=== PATIENT | female | born 1970 | race African-American/Black ===

== ENCOUNTER 2016-10-02 22:49 | Inpatient (IN) | payer OTHER ==
[2016-10-02 23:12] VITALS: BMI 36.9
--- NOTE | 2016-10-03 01:43 | PDOC ---
History of Present Illness <Tracey Sanchez - Last Filed: 10/03/16 05:59> - General History Source: Patient Exam Limitations: No Limitations - History of Present Illness Travel History: No Initial Comments: 10/03/16 01:38 46 yo Female patient presents to ED c/o fluid leaking out of vagina s/p hysterectomy 09/19. Patient states she went to see her surgeon Dr. Mcdaniel who ordered a cystogram for tomorrow, but patient concerned because lots of "fluids " leaking from vaginal. She reports changing pad every 1 hour. Denies fever, CP , back pain, n/v/d, diff breathing, vaginal bleeding, dysuria, hematuria, rectal bleeding, or any other complaints at this time. Timing/Duration: reports: getting worse Quality: reports: moderate Abdominal Pain Onset Location: denies: RUQ, LUQ, RLQ, LLQ, epigastric, periumbilical, suprapubic, generalized abdomen, flank, unknown, other Pain Radiation: denies: no radiation, RUQ, LUQ, RLQ, LLQ, epigastric, periumbilical, flank, groin, scapula, shoulder, chest, back, other Activities at Onset: reports: exertion Treatment Prior to Arrive: worse with: analgesics, antacids, cold pack, heat, laxative, enema, other Aggravating Factors: improves with: Change in position Alleviating Factors: improves with: None <Jody Jackson - Last Filed: 10/08/16 00:35> - General Chief Complaint: Pain, Acute Stated Complaint: STOMACH PAIN Time Seen by Provider: 10/02/16 23:33 Past History <Tracey Sanchez - Last Filed: 10/03/16 05:59> - Travel Traveled outside of the country in the last 30 days: No Close contact w/someone who was outside of country & ill: No - Past Medical History Anemia: No Asthma: Yes Cancer: No Cardiac Disorders: Yes ("hole in heart repaired 2004) CVA: Yes (no residual, pre hole in heart) COPD: No CHF: No Dementia: No Diabetes: No GI Disorders: No Disorders: No HTN: No Hypercholesterolemia: No Liver Disease: No Seizures: No Thyroid Disease: No - Surgical History Abdominal Surgery: No Appendectomy: No Cardiac Surgery: No Cholecystectomy: No Lung Surgery: No Neurologic Surgery: No Orthopedic Surgery: No - Psycho/Social/Smoking Cessation Hx Suicidal Ideation: No Smoking History: Never smoked Have you smoked in the past 12 months: No If you are a former smoker, when did you quit?: 2003 Hx Alcohol Use: No Drug/Substance Use Hx: No Substance Use Type: Alcohol Hx Substance Use Treatment: No <Jody Jackson - Last Filed: 10/08/16 00:35> - Past Medical History Allergies/Adverse Reactions: Allergies Allergy/AdvReac Type Severity Reaction Status Date / Time amoxicillin Allergy Severe Verified 10/02/16 22:58 Home Medications: Ambulatory Orders Potassium Chloride [Klor-Con 10] 10 meq PO DAILY 02/08/15 Furosemide [Lasix -] 40 mg PO DAILY 02/24/15 Cephalexin Monohydrate [Keflex -] 500 mg PO BID #28 capsule MDD 2 10/05/16 Hydromorphone HCl 2 mg PO Q4H PRN #30 tablet MDD 12 10/05/16 Abd/GI Specific PMHX - Complaint Specific PMHX Colitis: No Diverticulitis: No Gall Bladder Disease: No GERD: No Hepatitis: No Irritable Bowel Synd (IBS): No Pancreatitis: No GI Ulcer Disease: No <Jody Jackson - Last Filed: 10/08/16 00:35> Review of Systems - Review of Systems Able to Perform ROS?: Yes Is the patient limited [place] proficient: No Constitutional: No: Chills, Fever Respiratory: No: Cough, Orthopnea, Shortness of Breath, SOB with Exertion, Hemoptysis Cardiac (ROS): No: Chest Pain, Edema, Lightheadedness, Palpitations ABD/GI: Yes: Abdominal Distended. No: Abd. Pain w/ defecation, Constipated, Diarrhea, Nausea, Poor Appetite, Rectal Bleeding, Vomiting, Tarry Stools : No: Burning, Dysuria, Discharge, Hematuria Musculoskeletal: No: Back Pain Integumentary: No: Erythema, Rash Neurological: No: Headache, Numbness, Paresthesia, Tingling, Tremors, Weakness Psychiatric: No: Change in Appetite All Other Systems: Reviewed and Negative <Jody Jackson - Last Filed: 10/08/16 00:35> *Physical Exam - Vital Signs Last Vital Signs Temp Pulse Resp BP Pulse Ox 98.5 F 93 H 18 138/85 98 10/02/16 22:59 10/02/16 22:59 10/02/16 22:59 10/02/16 22:59 10/02/16 22:59 <Tracey Sanchez - Last Filed: 10/03/16 05:59> - Vital Signs Last Vital Signs Temp Pulse Resp BP Pulse Ox 98.5 F 93 H 18 138/85 98 10/02/16 22:59 10/02/16 22:59 10/02/16 22:59 10/02/16 22:59 10/02/16 22:59 - Physical Exam General Appearance: Yes: Nourished, Appropriately Dressed, Mild Distress Neck: positive: Trachea midline, Supple Respiratory/Chest: positive: Lungs Clear, Normal Breath Sounds. negative: Respiratory Distress Cardiovascular: positive: Regular Rhythm, Regular Rate Gastrointestinal/Abdominal: positive: Soft, Decreased BS, Distended. negative: Guarding, Rebound, Tenderness Lymphatic: negative: Adenopathy Musculoskeletal: positive: Normal Inspection. negative: CVA Tenderness Extremity: positive: Normal Capillary Refill, Normal Inspection, Normal Range of Motion Integumentary: positive: Normal Color, Dry, Warm, Other (16-20 cm surgical healing incision to lower abdomen with small amount of purulent drainage. + foul odor. No erythema, tenderness or active discharge noted.) Neurologic: positive: locate technician II-XII NML intact, Fully Oriented, Alert, Normal Mood/ Affect, Normal Response <Jody Jackson - Last Filed: 10/08/16 00:35> ED Treatment Course - LABORATORY CBC & Chemistry Diagram: 10/03/16 04:41 10/03/16 01:10 - ADDITIONAL ORDERS Additional order review: Laboratory Results 10/03/16 01:10 Sodium 139 Potassium 4.5 Chloride 106 Carbon Dioxide 22 Anion Gap 11 BUN 13 Creatinine 1.0 D Creat Clearance w eGFR 59.43 Random Glucose 84 Calcium 8.4 L Total Bilirubin 0.2 D AST 20 D ALT 17 Alkaline Phosphatase 108 Total Protein 6.0 L Albumin 2.1 L D 10/03/16 01:10 RBC 3.78 MCV 71.2 L MCHC 31.1 L RDW 21.5 H MPV 7.4 L D Neutrophils % 47.0 D Lymphocytes % 17.0 D Monocytes % 7.0 Eosinophils % 21.0 H* D <Tracey Sanchez - Last Filed: 10/03/16 05:59> - LABORATORY CBC & Chemistry Diagram: 10/04/16 07:00 10/05/16 10:45 - RADIOLOGY Radiology Studies Ordered: Category Date Time Status PELVIC / BLADDER US [US] Stat Ultrasound 10/03/16 01:03 Ordered <Jody Jackson - Last Filed: 10/08/16 00:35> Progress Note - Progress Note Progress Note: SPOKE WITH DR. MCDANIEL WHO WOULD LIKE PATIENT TO HAVE CYSTOGRAM TO DETERMINE WHETHER A BLADDER INJURY EXIST. CALL DR. MCDANIEL WITH RESULTS OF TESTING. PATIENT WILL STILL BE ADMITTED BUT DEPENDING ON RESULTS WILL DETERMINE WHAT UNIT. <Jody Jackson - Last Filed: 10/08/16 00:35> Medical Decision Making - Medical Decision Making 10/03/16 04:[address] Manas Tay at 4:37, 4:56,5:47. Awaiting call back. Dr. Tay responded at 5:56 and case was discussed and Dr. Tay suggested that patient be admitted to hospitalist. <Tracey Sanchez - Last Filed: 10/03/16 05:59> *DC/Admit/Observation/Transfer <Tracey Sanchez - Last Filed: 10/03/16 05:59> <Jody Jackson - Last Filed: 10/08/16 00:35> Diagnosis at time of Disposition: Perforation of ureter - Discharge Dispostion Disposition: HOME Condition at time of disposition: Good - Prescriptions
--- NOTE | 2016-10-03 01:50 | PDOC ---
*Physical Exam - Vital Signs Last Vital Signs Temp Pulse Resp BP Pulse Ox 98.5 F 93 H 18 138/85 98 10/02/16 22:59 10/02/16 22:59 10/02/16 22:59 10/02/16 22:59 10/02/16 22:59 ED Treatment Course - LABORATORY CBC & Chemistry Diagram: 10/03/16 04:41 10/03/16 01:10 Medical Decision Making - Medical Decision Making 10/03/16 01:50 agree with care from WILLARD Jackson *DC/Admit/Observation/Transfer Diagnosis at time of Disposition: Perforation of ureter
[2016-10-03 01:53] LABS: MCH 22.2 pg (25.7-33.7); MCHC 31.1 g/dl (32.0-36.0); MEAN CELL VOLUME 71.2 fl (80-96); MEAN PLT VOLUME 7.4 fl (7.5-11.1); PLATELET COUNT 589 K/MM3 (134-434); RDW 21.5 % (11.6-15.6); WHITE BLOOD COUNT 7.8 K/mm3 (4.0-10.0)
[2016-10-03 02:23] LABS: ALBUMIN 2.1 g/dl (3.4-5.0); CALCIUM 8.4 mg/dL (8.5-10.1)
[2016-10-03 02:24] LABS: BILIRUBIN,TOTAL 0.2 mg/dL (0.2-1.0)
[2016-10-03 02:42] LABS: ANISOCYTOSIS 2+; FRAGMENTED CELL 1+; HYPOCHROMIA 2+; MICROCYTOSIS 2+; PLATELET COMMENT2 NO CLOTTING DETECTED; PLATELET COMMENT3 MOD LARGE PLTS; PLATELET ESTIMATE INCREASED (NORMAL); POIKILOCYTOSIS 2+; POLYCHROMASIA 2+; SMUDGE CELLS FEW; SPHEROCYTE 1+; TEAR DROP CELLS 1+; TOXIC GRANULATION 1+
[2016-10-03] MEDS ORDERED: KETOROLAC TROMETHAMINE 30 MG/1 ML VIAL IVPUSH ONE (04:41)
[2016-10-03] MEDS ORDERED: KETOROLAC TROMETHAMINE 30 MG/1 ML VIAL ONE ×2 (04:42→13:50)
[2016-10-03 04:57] LABS: BASOPHIL 0.4 % (0-2.0); EOSINOPHIL 20.9 % (0-4.5); MCH 22.1 pg (25.7-33.7); MCHC 30.8 g/dl (32.0-36.0); MEAN CELL VOLUME 71.6 fl (80-96); MEAN PLT VOLUME 7.3 fl (7.5-11.1); NEUTROPHILS 56.7 % (42.8-82.8); PLATELET COUNT 547 K/MM3 (134-434); WHITE BLOOD COUNT 7.6 K/mm3 (4.0-10.0)
[2016-10-03] MEDS ORDERED: SODIUM CHLORIDE 1,000 ML IV STA (07:20)
--- NOTE | 2016-10-03 07:44 | PDOC ---
*Physical Exam - Vital Signs Last Vital Signs Temp Pulse Resp BP Pulse Ox 98.2 F 83 16 109/73 98 10/03/16 07:04 10/03/16 07:04 10/03/16 07:04 10/03/16 07:04 10/03/16 07:04 ED Treatment Course - LABORATORY CBC & Chemistry Diagram: 10/04/16 07:00 10/05/16 10:45 - ADDITIONAL ORDERS Additional order review: Laboratory Results 10/03/16 10/03/16 04:41 01:10 Sodium 139 Potassium 4.5 Chloride 106 Carbon Dioxide 22 Anion Gap 11 BUN 13 Creatinine 1.0 D Creat Clearance w eGFR 59.43 Random Glucose 84 Calcium 8.4 L Total Bilirubin 0.2 D AST 20 D ALT 17 Alkaline Phosphatase 108 Total Protein 6.0 L Albumin 2.1 L D Blood Type B POSITIVE Antibody Screen Negative 10/03/16 10/03/16 04:41 01:10 RBC 3.83 3.78 MCV 71.6 L 71.2 L MCHC 30.8 L 31.1 L RDW 22.0 H 21.5 H MPV 7.3 L 7.4 L D Neutrophils % 56.7 D 47.0 D Lymphocytes % 14.7 17.0 D Monocytes % 7.3 7.0 Eosinophils % 20.9 H* 21.0 H* D Basophils % 0.4 D - Medications Given in the ED: ED Medications Discontinued Medications Generic Name Dose Route Start Last Admin Trade Name Freq PRN Reason Stop Dose Admin Ketorolac Tromethamine 30 mg 10/03/16 04:41 10/03/16 04:52 Toradol Injection - IVPUSH 10/03/16 04:42 30 mg ONCE ONE Administration Medical Decision Making - Critical Care Time Total Critical Care Time (minutes): 35 Critical Care Statement: The care of this patient involved high complexity decision making to prevent further life threatening deterioration of the patient 's condition and/or to evalute & treat vital organ system(s) failure or risk of failure. - Medical Decision Making 10/03/16 07:42 Patient received in sign out from WILLARD Jackson. Patient status post hysterectomy on 09/[address] Mcdaniel now complaining of abdominal pain, distention, and vaginal discharge. Patient with clear fluid coming from vagina and CT shows a fluid collection of unknown etiology in the abdomen. As per Dr. Mcdaniel she wants a cystogram and will admit under her service and depending on the results may take patient to the OR from the ED 10/03/16 10:37 Laboratory Tests 10/03/16 10/03/16 08:14 08:34 INR 1.34 H Ur Specific [place] 1.050 H Urine Ketones Negative Urine Blood Negative Urine Nitrite Negative Ur Leukocyte Esterase Negative Pt still at ultrasound receiving the cystogram under the guidance of Dr. Ray 10/03/16 12:32 Selected Entries 10/03/16 07:04 Temperature 98.2 F Pulse Rhythm [ Regular Apical] Respiratory 16 Rate Blood Pressure 109/73 [Left Arm] O2 Sat by Pulse 98 Oximetry (%) Patient received 4 mg of morphine IV push secondary to abdominal pain. Cystogram shows perforation of the ureter but unable to determine which one . Bladder is intact. Case discussed with Dr. Mcdaniel will bring patient to the OR assisted with Dr. Rust either today or tomorrow but will contact me back in regards to the plan and antibiotic coverage. Patient made aware and is comfortable with the plan 10/03/16 13:05 Dr. Mcdaniel here for consultation and states patient will go to the OR today but will receive a CT urogram first. Patient also ordered for broad-spectrum antibiotic Zosyn *DC/Admit/Observation/Transfer Diagnosis at time of Disposition: Perforation of ureter - Discharge Dispostion Disposition: HOME Condition at time of disposition: Good Admit: Yes - Prescriptions
[2016-10-03 08:37] LABS: URINE APPEARANCE CLEAR; URINE BILIRUBIN NEGATIVE (NEGATIVE); URINE BLOOD NEGATIVE (NEGATIVE); URINE COLOR LTYELLOW; URINE GLUCOSE (UA) NEGATIVE (NEGATIVE); URINE KETONE NEGATIVE (NEGATIVE); URINE LEUK ESTERASE NEGATIVE (NEGATIVE); URINE NITRITE NEGATIVE (NEGATIVE); URINE PROTEIN NEGATIVE (NEGATIVE); URINE UROBILINOGEN NEGATIVE E.U./dl (0.2-1.0)
[2016-10-03 09:58] LABS: INR 1.34 (0.82-1.09); PROTHROMBIN TIME (PATIENT) 14.8 SEC (9.98-11.88)
[2016-10-03] MEDS ORDERED: morphine CARPU-JECT 4 MG/1 ML DISP.SYRIN ONE (11:58)
[2016-10-03] MEDS ORDERED: morphine CARPU-JECT 2 MG/1 ML DISP.SYRIN IVPUSH ONE (12:02)
[2016-10-03] MEDS ORDERED: PIPERACILLIN/TAZOB 3.375 GM 3.375 GM in DEXTROSE 5%-WATER - 50 ML IVPB SCH (13:15)
[2016-10-03] MEDS ORDERED: PIPERACILLIN/TAZOB 3.375 GM 50 ML IVPB ONE (13:20)
[2016-10-03] MEDS ORDERED: DEXAMETHASONE SOD PHOSPHATE 4 MG/1 ML VIAL ONE (13:50)
[2016-10-03] MEDS ORDERED: ROCURONIUM BROMIDE 50 MG/5 ML VIAL ONE (13:51)
[2016-10-03] MEDS ORDERED: MIDAZOLAM HCL 2 MG/2 ML SINGLE DOSE VIAL ONE (13:51)
[2016-10-03] MEDS ORDERED: SEVOFLURANE 250 ML BTL ONE (13:59)
[2016-10-03] MEDS ORDERED: METHYLENE BLUE 1% 10 MG/1 ML VIAL ONE (14:03)
--- NOTE | 2016-10-03 14:09 | HP ---
Admitting History and Physical - Admission Chief Complaint: abdominal pain, leaking vaginal fluid History of Present Illness: 46 y/o female with past medical history of a PFO (repaired when she was a child) , Hypertension and recent total abdominal hysterectomy with bilateral salpingectomy presented to the ER last night with abdominal pain and complaints of leaking fluid from the vagina for the past 2 days. The patient was seen as an outpatient on 10/01/16 with complaints of urinary incontinence, and at that time it was discovered that fluid was leaking vaginally. At that time, the patient was set up for a cystogram as an outpatient to evaluate the bladder for injury during the procedure, but in the mean time the patient started to have abdominal pain and "hardening" of her abdomen which prompted her to come to the E.D. Since being in the ER, the patient has had a cystogram and CT with contrast. CT urogram also done showing likely injury to left ureter as there is contrast extravasation into the peritoneal/pelvic cavity noted. Patient currently stable and pain is controlled. Has been NPO since 10/02/16 before midnight. History Source: Patient, Medical Record Limitations to Obtaining History: No Limitations - Past Medical History DIRECTOR PHARMACOVIGILANCE: No: CVA, Dementia, Peripheral Neuropathy Cardiovascular: Yes: HTN, Other (patent PFO repaired as a child). No: AFIB, Aneurysm, CAD, Hyperlipdemia, [place] Pulmonary: No: COPD, Pneumonia Gastrointestinal: Yes: Ascites (Ascites noted on CT scan) Hepatobiliary: No: Cirrhosis Renal/: Yes: Renal Calculi (noted on CT scan - non obstructing). No: Renal Failure, Hematuria, UTI Reproductive: Yes: Fibroids (history of fibroids, s/p AMOR and b/l salpingctomy 09/19/16) ...LMP: 02/23/15 ...: No Heme/Onc: No: Sickle Cell Disease, Sickle Cell Trait Infectious Disease: No: AIDS, HIV, MRSA Psych: No: Anxiety, Bipolar, Depression - Past Surgical History Past Surgical History: Yes: Hysterectomy - Smoking History Smoking history: Never smoked Have you smoked in the past 12 months: No If you are a former smoker, when did you quit?: 2003 - Alcohol/Substance Use Hx Alcohol Use: No History of Substance Use: reports: None - Social History ADL: Independent History of Recent Travel: No Home Medications - Allergies Allergies/Adverse Reactions: Allergies Allergy/AdvReac Type Severity Reaction Status Date / Time amoxicillin Allergy Severe Verified 10/02/16 22:58 - Home Medications Home Medications: Ambulatory Orders Potassium Chloride [Klor-Con 10] 10 meq PO DAILY 02/08/15 Furosemide [Lasix -] 40 mg PO DAILY 02/24/15 Review of Systems - Review of Systems Constitutional: reports: No Symptoms, Weakness HENT: reports: No Symptoms Neck: reports: No Symptoms Cardiovascular: reports: No Symptoms Respiratory: reports: No Symptoms Gastrointestinal: reports: Abdominal Pain, Bloating. denies: Constipation, Diarrhea, Indigestion, Nausea, Vomiting, Vomiting Blood Genitourinary: reports: Incontinence (perceived incontinence). denies: Dysuria , Flank Pain, Pain, Urgency Breasts: reports: No Symptoms Reported Musculoskeletal: reports: No Symptoms Integumentary: reports: No Symptoms Neurological: reports: No Symptoms Endocrine: reports: No Symptoms Hematology/Lymphatic: reports: No Symptoms Physical Examination Vital Signs: Vital Signs Temperature 98.2 F 10/03/16 07:04 Pulse Rate 83 10/03/16 07:04 Respiratory Rate 16 10/03/16 07:04 Blood Pressure 109/73 10/03/16 07:04 O2 Sat by Pulse Oximetry (%) 98 10/03/16 07:04 Constitutional: Yes: Well Nourished, No Distress, Calm Eyes: Yes: Conjunctiva Clear, EOM Intact HENT: Yes: Atraumatic, Normocephalic Neck: Yes: Supple, Trachea Midline Cardiovascular: Yes: Regular Rate and Rhythm Respiratory: Yes: Regular, CTA Bilaterally Gastrointestinal: Yes: Soft, Abdomen, Obese, Ascites, Tenderness. No: Distention, Hernia Renal/: Yes: Banuelos Present, Vaginal Discharge (watery discharge). No: Bladder Distention, Vaginal Bleeding Extremities: Yes: WNL Edema: No Wound/Incision: Yes: Clean/Dry Neurological: Yes: Alert, Oriented Psychiatric: Yes: Alert, Oriented Problem List - Problems (1) History of hysterectomy Code(s): Z90.710 - ACQUIRED ABSENCE OF BOTH CERVIX AND UTERUS (2) Perforation of ureter Code(s): N28.89 - OTHER SPECIFIED DISORDERS OF KIDNEY AND URETER Assessment/Plan 46 y/o post op day 14 from [facility] and bilateral salpingectomy with suspected ureteral injury. Admit to hospital. Plan for operating room today - possible cystoscopy possible laparotomy and reimplantation of ureter. Urology aware. Pt has been NPO. SCDs Banuelos catheter in place. Received Zosyn in ED will continue antibiotics post op.
[2016-10-03] MEDS ORDERED: IBUPROFEN 600 MG TABLET (FP) PO PRN (15:50)
[2016-10-03] MEDS ORDERED: ACETAMINOPHEN 325 MG TABLET (FP) PO PRN (15:51)
[2016-10-03] MEDS ORDERED: HYDROmorphone HCL CARPU-JECT 1 MG/1 ML DISP.SYRIN IVPUSH PRN (15:52)
[2016-10-03] MEDS ORDERED: ONDANSETRON 4 MG/2 ML VIAL IVPUSH PRN (15:52)
[2016-10-03] MEDS ORDERED: PROMETHAZINE HCL 25 MG/1 ML VIAL IVPUSH PRN (15:52)
[2016-10-03] MEDS ORDERED: ONDANSETRON 4 MG TABLET PO ONE (16:00)
[2016-10-03] MEDS ORDERED: LACTATED RINGERS SOLUTION 1,000 ML IV SCH (16:00)
--- NOTE | 2016-10-03 16:21 | OP ---
DATE OF OPERATION: 10/03/2016 PREOPERATIVE DIAGNOSIS: Urine leak after hysterectomy. POSTOPERATIVE DIAGNOSIS: Right ureteral transection. FINDINGS: Normal left collecting system. No vesicovaginal fistula detected. Transection of right ureter. PROCEDURE: Cystoscopy, bilateral retrograde pyelogram, left ureteral stent placement, and cystogram with dye. SURGEONS: Elijah Rust M.D., Rebekah Mcdaniel M.D. PREOPERATIVE INDICATION: The patient is a 46-year-old female who is 2 weeks status post abdominal hysterectomy. She comes in with leakage of fluids vaginally. CT scan reveals a large amount of urine in the pelvis. On CT scan there appears to be a thinning on the distal left ureter with extravasation of contrast. She comes to the OR for cystoscopy. OPERATION: Patient was brought to the OR, placed on the table in the supine position. She was given general anesthesia. She was already on IV antibiotics. She was placed in the modified lithotomy position. The groin was then prepped and draped sterilely. Timeout was performed. Cystoscopy was performed. The bladder appeared to be grossly normal. The urethra was normal. Both ureters were seen, no stones were seen. Left side, the retrograde pyelogram was performed which revealed what appeared to be a normal collecting system and ureter with no obvious extravasation of contrast. A 6 x 26 Double J ureteral stent was placed, 1 loop in the renal pelvis, 1 loop in the bladder. On the right side, the was intubated with an open-end catheter, and contrast was injected. This appeared to freely drain into the retroperitoneum. Attempts at passing of wire were also unsuccessful. A dye test was used to detect any evidence of a vesicovaginal fistula. The bladder was filled with methylene blue dye and saline, gauze is placed in the vaginal vault, having no leaking of dye was seen. This ruled out a vesicovaginal fistula. A 16 filling catheter was replaced, the patient was woken up. Kalpana SEQUEIRA/[id number]
[2016-10-03] MEDS: LACTATED RINGERS SOLUTION 1,000 ML IV SCH ×2 (17:30→18:35)
[2016-10-03] MEDS: CEFAZOLIN 1 GM/D5W 50 ML IVPB SCH (18:35)
[2016-10-03] MEDS: HYDROmorphone HCL 2 MG TABLET PO PRN (21:03)
[2016-10-04] MEDS: CEFAZOLIN 1 GM/D5W 50 ML IVPB SCH ×2 (01:23→13:35)
[2016-10-04] MEDS: LACTATED RINGERS SOLUTION 1,000 ML IV SCH ×2 (01:23→15:56)
[2016-10-04] MEDS: HYDROmorphone HCL 2 MG TABLET PO PRN (03:22)
[2016-10-04 08:49] LABS: BASOPHIL 0.3 % (0-2.0); EOSINOPHIL 2.6 % (0-4.5); MCHC 32.5 g/dl (32.0-36.0); MEAN CELL VOLUME 70.8 fl (80-96); MEAN PLT VOLUME 7.3 fl (7.5-11.1); NEUTROPHILS 75.2 % (42.8-82.8); PLATELET COUNT 657 K/MM3 (134-434); RDW 21.4 % (11.6-15.6); WHITE BLOOD COUNT 8.2 K/mm3 (4.0-10.0)
[2016-10-04 08:58] LABS: ALBUMIN 1.9 g/dl (3.4-5.0); ANION GAP 7 (8-16); CALCIUM 8.8 mg/dL (8.5-10.1); CO2 25 mmol/L (21-32); GLUCOSE,RANDOM 84 mg/dL (74-106)
[2016-10-04 09:03] LABS: ALK PHOS 89 U/L (45-117); CREATININE 1.3 mg/dL (0.55-1.02); SGOT/AST 11 U/L (15-37); SGPT/ALT 13 U/L (12-78); TOT PROT 5.7 g/dl (6.4-8.2)
[2016-10-04 09:04] LABS: INR 1.31 (0.82-1.09); PROTHROMBIN TIME (PATIENT) 14.5 SEC (9.98-11.88)
[2016-10-04 09:06] LABS: BILIRUBIN,TOTAL < 0.1 mg/dL (0.2-1.0)
[2016-10-04 09:07] LABS: ACTIVATED PTT 27.2 SECONDS (26.9-34.4)
--- NOTE | 2016-10-04 09:22 | PN ---
Progress Note, Physician Chief Complaint: Patient feels ok, denies pain. Still having fluid leakage from vagina this a.m. Banuelos catheter in place draining blue stained urine. - Current Medication List Current Medications: Active Medications Acetaminophen (Tylenol -) 650 mg PO Q4H PRN PRN Reason: FEVER OR PAIN Enoxaparin Sodium (Lovenox -) 40 mg SQ DAILY CJ Hydromorphone HCl (Dilaudid -) 2 mg PO Q6H PRN PRN Reason: PAIN Last Admin: 10/04/16 03:22 Dose: 2 mg Hydromorphone HCl (Dilaudid Injection -) 0.5 mg IVPUSH [id number] PRN PRN Reason: PAIN Stop: 10/06/16 15:53 Lactated Ringer's (Lactated Ringers Solution) 1,000 mls @ 125 mls/hr IV ASDIR CJ Last Admin: 10/04/16 01:23 Dose: 125 mls/hr Cefazolin Sodium (Ancef 1 Gm Premixed Ivpb -) 50 mls @ 100 mls/hr IVPB Q8H-IV CJ Stop: 10/04/16 17:59 Last Admin: 10/04/16 01:23 Dose: 100 mls/hr - Objective Vital Signs: Vital Signs Temperature 98.1 F 10/04/16 08:50 Pulse Rate 77 10/04/16 08:50 Respiratory Rate 18 10/04/16 08:50 Blood Pressure 114/77 10/04/16 08:50 O2 Sat by Pulse Oximetry (%) 97 10/03/16 22:36 Constitutional: Yes: Well Nourished, No Distress, Calm Eyes: Yes: Conjunctiva Clear, EOM Intact HENT: Yes: Atraumatic, Normocephalic Neck: Yes: Supple, Trachea Midline Cardiovascular: Yes: Regular Rate and Rhythm Respiratory: Yes: Regular, CTA Bilaterally Gastrointestinal: Yes: Soft. No: Tenderness Genitourinary: Yes: Banuelos Present, Vaginal Discharge (vaginal leakage of clear fluid). No: CVA Tenderness - Left, CVA Tenderness - Right, Vaginal Bleeding Extremities: Yes: WNL Wound/Incision: Yes: Clean/Dry, Sutures Intact Neurological: Yes: Alert, Oriented Psychiatric: Yes: Alert, Oriented Labs: CBC, BMP 10/04/16 07:00 10/04/16 07:00 INR, PTT INR 1.31 (0.82-1.09) H 10/04/16 07:00 Problem List - Problems (1) History of hysterectomy Code(s): Z90.710 - ACQUIRED ABSENCE OF BOTH CERVIX AND UTERUS (2) Perforation of ureter Code(s): N28.89 - OTHER SPECIFIED DISORDERS OF KIDNEY AND URETER Assessment/Plan 46 y/o post op day 15 from [facility] and bilateral salpingectomy with confirmed right ureteral injury - s/p left ureteral stenting and retrograde pyelogram yesterday - appreciate urology input/consultation - plan for right sided percutaneous nephrostomy tube placement today as well as paracentesis to drain intraperitoneal urine collection - creatinine elevated today - likely 2/2 ureteral injury and 2 courses of IV contrast patient received yesterday - continue IV fluids and will monitor - once stabilized after IR procedures, for discharge home and follow up with ob/gyn doctor /urology as outpatient - plan for reimplantation of ureter at a later date per urology recommendations
[2016-10-04 09:59] LABS: PLATELET ESTIMATE INCREASED (NORMAL)
[2016-10-04] MEDS ORDERED: ENOXAPARIN NA (PORCINE) 40 MG/0.4 ML DISP.SYRIN SQ SCH (10:00)
[2016-10-04] MEDS ORDERED: MIDAZOLAM HCL 2 MG/2 ML SINGLE DOSE VIAL IVPUSH ONE ×2 (10:00→10:30)
[2016-10-04 10:01] LABS: ANISOCYTOSIS 1+; MICROCYTOSIS 1+; POIKILOCYTOSIS 1+
[2016-10-04] MEDS ORDERED: HYDROmorphone HCL CARPU-JECT 2 MG/1 ML DISP.SYRIN IVPUSH ONE (10:52)
[2016-10-04] MEDS ORDERED: IBUPROFEN 600 MG TABLET (FP) PO PRN (14:07)
[2016-10-04] MEDS ORDERED: HYDROmorphone HCL 2 MG TABLET PO PRN ×2 (15:01→18:04)
[2016-10-04 16:45] LABS: ALBUMIN 1.9 g/dl (3.4-5.0); BILIRUBIN,TOTAL 0.1 mg/dL (0.2-1.0); CALCIUM 8.7 mg/dL (8.5-10.1); CREATININE 1.1 mg/dL (0.55-1.02); TOT PROT 5.9 g/dl (6.4-8.2)
[2016-10-04] MEDS ORDERED: HYDROmorphone HCL 2 MG TABLET PO ONE (18:05)
[2016-10-04] MEDS ORDERED: diphenhydrAMINE HCL 25 MG CAPSULE (FP) PO PRN (18:05)
--- NOTE | 2016-10-04 18:13 | PN ---
Progress Note, Physician Chief Complaint: Pt seen/examined. Overall feels well. Is s/p percutaneous nephrostomy tube placement (on right) and paracentesis. Pain felt better after a dose of Dilaudid, but pain is returning at this time. Has not yet been OOB since this a.m. Tolerating regular diet. States she no longer has leakage of fluid from the vagina. - Current Medication List Current Medications: Active Medications Acetaminophen (Tylenol -) 650 mg PO Q4H PRN PRN Reason: FEVER OR PAIN Diphenhydramine HCl (Benadryl -) 25 mg PO HS PRN PRN Reason: INSOMNIA Hydromorphone HCl (Dilaudid Injection -) 0.5 mg IVPUSH [id number] PRN PRN Reason: PAIN Stop: 10/06/16 15:53 Hydromorphone HCl (Dilaudid -) 2 mg PO Q4HWA PRN PRN Reason: PAIN LEVEL 1-5 Hydromorphone HCl (Dilaudid -) 4 mg PO Q4H PRN PRN Reason: PAIN LEVEL 6-10 Lactated Ringer's (Lactated Ringers Solution) 1,000 mls @ 125 mls/hr IV ASDIR CJ Last Admin: 10/04/16 15:56 Dose: 125 mls/hr Ibuprofen (Motrin -) 600 mg PO Q6H PRN PRN Reason: FEVER - Objective Vital Signs: Vital Signs Temperature 98.3 F 10/04/16 14:00 Pulse Rate 79 10/04/16 14:00 Respiratory Rate 18 10/04/16 14:00 Blood Pressure 110/63 10/04/16 14:00 O2 Sat by Pulse Oximetry (%) 95 10/04/16 13:57 Constitutional: Yes: Well Nourished, No Distress, Calm Eyes: Yes: Conjunctiva Clear, EOM Intact HENT: Yes: Atraumatic, Normocephalic Neck: Yes: Supple, Trachea Midline Cardiovascular: Yes: Regular Rate and Rhythm Respiratory: Yes: Regular, CTA Bilaterally Gastrointestinal: Yes: Normal Bowel Sounds, Soft, Other (paracentesis site noted ). No: Tenderness Genitourinary: Yes: CVA Tenderness - Right, Blood Present, Other (right nephrostomy tube in place). No: CVA Tenderness - Left, Hematuria Extremities: Yes: WNL Wound/Incision: Yes: Clean/Dry, Sutures Intact. No: Draining, Reddened Neurological: Yes: Alert, Oriented Psychiatric: Yes: Alert, Oriented Labs: CBC, BMP 10/04/16 07:00 10/04/16 15:00 INR, PTT INR 1.31 (0.82-1.09) H 10/04/16 07:00 Problem List - Problems (1) History of hysterectomy Code(s): Z90.710 - ACQUIRED ABSENCE OF BOTH CERVIX AND UTERUS (2) Perforation of ureter Code(s): N28.89 - OTHER SPECIFIED DISORDERS OF KIDNEY AND URETER Assessment/Plan 46 y/o post op day 15 from [facility] and bilateral salpingectomy and POD#0 s/p right nephrostomy tube placement and paracentesis due to right ureteral injury. - AFVSS - pain control, regular diet, ambulation prn - PO pain meds - monitor strict I/Os - to start PO keflex in a.m. ( to stay on for 2 weeks due to indwelling blood catheter per urology) - lovenox and SCDs for VTE PPx - CBC/CMP in a.m. (creatinine elevated today but improving) - if stable, possibly for discharge home in a.m.
[2016-10-04 19:35] LABS: PERITONEAL FLUID BASOPHIL 1 %; PERITONEAL FLUID EOSINOPHIL 18 %; PERITONEAL FLUID LYMPHOCYTE 12 %; PERITONEAL FLUID MACROPHAGE 10 %; PERITONEAL FLUID MONOCYTE 16 %; PERITONEAL FLUID NEUTROPHIL 43 %
[2016-10-05] MEDS: LACTATED RINGERS SOLUTION 1,000 ML IV SCH (00:23)
[2016-10-05] MEDS ORDERED: ENOXAPARIN NA (PORCINE) 40 MG/0.4 ML DISP.SYRIN SQ SCH (10:00)
[2016-10-05 11:22] VITALS: BP 125/72; PULSE 88; TEMP 99.3
[2016-10-05 11:23] LABS: ALK PHOS 96 U/L (45-117); ANION GAP 7 (8-16); BILIRUBIN,TOTAL 0.2 mg/dL (0.2-1.0); CALCIUM 8.6 mg/dL (8.5-10.1); CO2 27 mmol/L (21-32); CREATININE 0.8 mg/dL (0.55-1.02); GLUCOSE,RANDOM 91 mg/dL (74-106); SGOT/AST 12 U/L (15-37); SGPT/ALT 13 U/L (12-78); TOT PROT 6.1 g/dl (6.4-8.2)
--- NOTE | 2016-10-05 13:39 | DS ---
Physical Examination Vital Signs: Vital Signs Temperature 99.3 F 10/05/16 09:00 Pulse Rate 88 10/05/16 09:00 Respiratory Rate 20 10/05/16 09:00 Blood Pressure 125/72 10/05/16 09:00 O2 Sat by Pulse Oximetry (%) 95 10/05/16 09:00 Constitutional: Yes: Well Nourished, No Distress, Calm Eyes: Yes: Conjunctiva Clear, EOM Intact HENT: Yes: Atraumatic, Normocephalic Neck: Yes: Supple, Trachea Midline Cardiovascular: Yes: Regular Rate and Rhythm Respiratory: Yes: Regular, CTA Bilaterally Gastrointestinal: Yes: Normal Bowel Sounds, Soft. No: Tenderness, Vomiting Renal/: Yes: CVA Tenderness - Right (right CVA tenderness due to nephrostomy tube placement), Blood Present. No: Bladder Distention, CVA Tenderness - Left, Hematuria, Incontinence, , Vaginal Bleeding Musculoskeletal: Yes: WNL Extremities: Yes: WNL Edema: No Wound/Incision: Yes: Clean/Dry, Well Approximated Neurological: Yes: Alert, Oriented Psychiatric: Yes: Alert, Oriented Labs: CBC, BMP 10/04/16 07:00 10/05/16 10:45 Discharge Summary Reason For Visit: PERFORATION OF URETER Current Active Problems Perforation of ureter (Acute) Procedures: Principal: Cystoscopy, left ureteral stent placement, retrograde pyelogram, right percutaneous nephrostomy tube placement, paracentesis Hospital Course: Patient admitted to hospital on 10/03/16 (14 days after a total abdominal hysterectomy) with complaints of abdominal pain and leaking from he vagina. Patient was diagnose with a right ureteral injury and a large collection of urine in the peritoneal cavity. Urology was consulted. The patient was taken to the operating room and underwent a a retrograde pyleogram, cystoscopy, and left ureteral stent placement. The right ureter was found to be the side that was injured. The plan was made to have a paracentesis to drain the intraperitoneal urine/fluid collection and place a right percutaneous nephrostomy tube -- this was completed on 10/04/16 by interventional radiology. On 10/05/16 the patient was ambulating, tolerating a regular diet and her pain was controlled with oral medications . The nephrostomy tube was draining clear yellow urine, and the blood catheter (which will be left in place until removed by urology as outpatient) was draining clear yellow urine. The patient's creatinine on 10/05/16 was 0.8 which is the patient's baseline. The patient was discharged home in stable condition on 10/05/16 with instructions to follow up the following week with [employer] and in 2 week with urology at which time a plan will be made to schedule a ureter reimplantation procedure. Condition: Good - Instructions Diet, Activity, Other Instructions: Physical activity Resume your normal everyday activity as tolerated but no heavy lifting or strenuous exercise until seen by your surgeon. You may walk unlimited amounts and climb stairs. You may resume driving the car when you feel safe and comfortable behind the wheel - likely in 1-2 weeks. No sexual activity. Wound care If you have a bandage, leave it on, and keep dry for 48 hours. After that time discard the outer bandage. You may shower. Empty the blood catheter and kidney drainage tube as directed to you by the nursing staff. DO NOT attempt to remove the blood catheter or the kidney drainage tube yourself. Diet There are no dietary restrictions. Eat healthy, high-fiber foods. Drink 6 to 8 glasses of liquid each day. This will assist in keeping your bowels are regular. Pain management You may take Tylenol or Ibuprofen (for example, Motrin, Advil etc.) for mild pain. A prescription for Dilaudid will be sent to your pharmacy for severe pain. Call Dr. Mcdaniel for any of the following: Severe pain not relieved by medication Fever of 101 or higher Excessive bleeding or drainage on dressing Inability to urinate Follow up in the office for your previously scheduled appointment on 10/10/16. . Referrals: Rebekah Mcdaniel DO [Staff Physician] - 1 Week (as previously scheduled) Elijah Rust MD [Staff Physician] - 2 Weeks Manas Tay MD [Primary Care Provider] - Disposition: HOME - Home Medications Comprehensive Discharge Medication List: Ambulatory Orders Potassium Chloride [Klor-Con 10] 10 meq PO DAILY 02/08/15 Furosemide [Lasix -] 40 mg PO DAILY 02/24/15 Cephalexin Monohydrate [Keflex -] 500 mg PO BID #28 capsule MDD 2 10/05/16 Hydromorphone HCl 2 mg PO Q4H PRN #30 tablet MDD 12 10/05/16
--- NOTE | 2016-10-07 13:21 | PATH ---
Cytology Non-Gynecological Report Patient Name: DWAIN WERNER Med. Rec. #: [id number] /Age/Gender: 1970 (Age: 46) / F Account: [id number] Location: [facility] MED/SURG Taken: 10/04/2016 Received: 10/04/2016 Reported: 10/07/2016 Physicians: Kalpana Morin M.D. Specimen(s) Received PERITONEAL FLUID Clinical History None given Final Diagnosis ABDOMINAL FLUID, PARACENTESIS: SATISFACTORY FOR EVALUATION BENIGN (NO MALIGNANT CELLS IDENTIFIED) MESOTHELIAL CELLS, NEUTROPHILS, EOSINOPHILS, AND LYMPHOCYTES PRESENT. Comment: Recommend correlation with clinical findings and follow up as clinically indicated. Also see [id number]. Electronically Signed Christopher Betancourt M.D. Gross Description A. Approximately 50 cc of yellow fluid received fixed in 50% alcohol. One cytofunnel and one cellblock prepared. B. Approximately 3000 cc of yellow fluid received fresh. One cytofunnel and one cellblock prepared.
== END 2016-10-05 14:54 | disposition home or self-care (01) | DRG 567 ==
LOC: JER 22:49 → JERBED 10-03 12:48 → J8W 10-03 17:50
PROVIDERS: ADMIT Obstetrics & Gynecology; ATTEND Obstetrics & Gynecology
PROC: BT14YZZ Fluoroscopy of Kidneys, Ureters and Bladder using Other Contrast (ICD-10-PCS; 2016-10-03)
PROC: 0T778DZ Dilation of Left Ureter with Intraluminal Device, Via Natural or Artificial Opening Endoscopic (ICD-10-PCS; principal; 2016-10-03 13:30)
PROC: 0T9030Z Drainage of Right Kidney with Drainage Device, Percutaneous Approach (ICD-10-PCS; 2016-10-04)
PROC: 0W9G3ZX Drainage of Peritoneal Cavity, Percutaneous Approach, Diagnostic (ICD-10-PCS; 2016-10-04)
DX: N99.89 Other postprocedural complications and disorders of genitourinary system (principal); S37.19XA Other injury of ureter, initial encounter; Y83.9 Surgical procedure, unspecified as the cause of abnormal reaction of the patient, or of later complication, without mention of misadventure at the time of the procedure; N99.71 Accidental puncture and laceration of a genitourinary system organ or structure during a genitourinary system procedure; N28.89 Other specified disorders of kidney and ureter; I10 Essential (primary) hypertension
CPT/HCPCS: 36415; 49083; 50432; 51600; 74177-TC; 74430-TC; 76000-TC; 76098-TC; 76856-TC; 76942-TC; 80053; 81003; 82042; 82150; 82945; 83615; 84157; 84478; 85025; 85610; 85730; 86850; 86900; 86901; 87070; 87075; 87086; 87102; 87116; 87205; 87206; 87210; 87899; 88108; 88305-TC; 89051; 94760; 99285-25; C1729; C1769; Q9967

== ENCOUNTER → 2016-12-04 | Day surgery (SDC) | payer OTHER | END | disposition home or self-care (01) | LOC: JRADIR 12:54 | PROVIDERS: ATTEND Internal Medicine | PROC: 0T25X0Z Change Drainage Device in Kidney, External Approach (ICD-10-PCS; principal; 2016-12-04) | DX: N99.528 Other complication of incontinent external stoma of urinary tract (principal); T83.098A Other mechanical complication of other urinary catheter, initial encounter; Y83.8 Other surgical procedures as the cause of abnormal reaction of the patient, or of later complication, without mention of misadventure at the time of the procedure | CPT/HCPCS: 50389; 50435; 76098-TC; 87086; 87186; 87899; A4358; C1729; C1769 ==

== ENCOUNTER 2018-06-22 07:42 | Day surgery (SDC) | payer OTHER ==
[2018-06-11 09:47] VITALS: BMI 39.5
[2018-06-22] MEDS ORDERED: SUCCINYLCHOLINE CHLORIDE 200 MG/10 ML VIAL ONE (07:45)
[2018-06-22] MEDS ORDERED: PROPOFOL 20 ML ONE ×2 (07:45→09:53)
[2018-06-22] MEDS ORDERED: ROCURONIUM BROMIDE 50 MG/5 ML VIAL ONE (07:46)
[2018-06-22] MEDS ORDERED: KETOROLAC TROMETHAMINE 30 MG/1 ML VIAL ONE (07:46)
[2018-06-22] MEDS ORDERED: oxyCODONE HCL 5 MG TABLET PO PRN ×2 (08:05)
[2018-06-22] MEDS ORDERED: ONDANSETRON 4 MG/2 ML VIAL IVPUSH PRN (08:05)
[2018-06-22] MEDS ORDERED: LACTATED RINGERS SOLUTION 1,000 ML IV SCH (08:15)
[2018-06-22] MEDS ORDERED: LIDOCAINE HCL 2% (20ML MULTI-DOSE VIAL) NR ONE (09:31)
[2018-06-22] MEDS ORDERED: MIDAZOLAM HCL 2 MG/2 ML SINGLE DOSE VIAL ONE (09:40)
[2018-06-22 12:43] VITALS: TEMP 98
[2018-06-22 14:05] VITALS: BP 127/84; PULSE 55
--- NOTE | 2018-06-22 20:04 | OP ---
DATE OF OPERATION: 06/22/2018 PREOPERATIVE DIAGNOSIS: Left breast fibroepithelial lesion. POSTOPERATIVE DIAGNOSIS: Left breast fibroepithelial lesion. PROCEDURE: Left breast ultrasound-guided wire localized lumpectomy. SURGEON: Fanny Figueroa MD ANESTHESIA: General. ESTIMATED BLOOD LOSS: Minimal. COMPLICATIONS: None. This was a sterile procedure. INDICATIONS: The patient presented with a solid nodule in the upper outer left breast. 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 My recommendation was excision. The procedure was discussed with all questions answered. PROCEDURE IN DETAIL: The patient was brought to [facility] in [place] and taken into the operating room, where after IV sedation the left breast was prepped. An intraoperative ultrasound was performed by me. A Kopans wire was used to localize the lesion in the left breast, 1 o'clock location, 11 cm from the nipple. Images were recorded. The left breast was then prepped and draped in the usual sterile fashion. The patient was moving around too much, so at this point it was decided to go ahead and do general anesthesia. Once this was done, the part of the incision in the upper outer left breast was used and sharply opened. A wire was used as a guide to get down to the area, which was excised en bloc and tagged with a long lateral suture. I could see that superiorly I was very close to the margin; therefore, I took a new superior margin with a stitch at the old margin. The lumpectomy was also marked in the usual way of long stitch lateral, short stitch superior. Both of the specimens were sent to Pathology for permanent section. The hemostasis assured with electrocautery. The deep tissues were approximated with interrupted 2-0 Vicryl. Skin approximated with interrupted 3-0 Vicryl and running 4-0 Prolene. A sterile dressing with Tegaderm, 4 x 4's was applied. She tolerated the procedure well, was extubated on the operating room table and taken to recovery in good condition. Kalpana [id number]
--- NOTE | 2018-06-25 14:38 | PATH ---
Surgical Pathology Report Patient Name: DWAIN WERNER [facility]. Rec. #: [id number] /Age/Gender: 1970 (Age: 48) / F Account: [id number] Location: [facility] SURGICAL Taken: 06/22/2018 Received: 06/22/2018 Reported: 06/25/2018 Physicians: Fanny Figueroa M.D. 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 BREAST, LEFT, LUMPECTOMY: CELLULAR AND HYALINIZED FIBROADENOMAS IN A BACKGROUND OF FIBROCYSTIC CHANGES. B. BREAST, LEFT, NEW SUPERIOR MARGIN, EXCISION: BENIGN BREAST TISSUE. Electronically Signed Tracey Wong M.D. Gross Description A. Received in formalin labeled "left breast lumpectomy" is a 17 g yellow fibroadipose tissue measuring 4 x 4 x 2.5 cm. A needle localizing wire is identified. The specimen is designated as follows: long stitch- lateral and short stitch- superior, per surgeon. No skin is identified. The specimen is inked as follows: superior-blue, inferior-green, medial and lateral-orange, anterior- red, and posterior- black. The specimen is serially sectioned from medial to lateral. Cut section shows a white-rhoades, well circumscribed, firm lesion measuring 1 x 1 x 0.7 cm. The lesion abuts the superior margin, 0.5 cm from closest anterior margin, and greater than 1 cm on all other margins. A second lesion is identified measuring 0.6 cm, which abuts the anterior margin, 0.7 cm from posterior margin, and > 1 cm from all other margins. The entire specimen is sequentially submitted from medial to lateral in 11 cassettes: A1-medial margin; A4-5, A6-7, A8-9: Bisected with lesion; [id number] margin. B. Received in formalin labeled "left breast new superior margin" is a 6 g yellow, fibroadipose soft tissue measuring 3.5 x 2.5 x 1 cm. A stitch is identified marking the old margin. The opposite side is inked in blue. The specimen is serially sectioned. No lesions are identified. Specimen is entirely submitted in 4 cassettes. Total formalin fixation time: Between 7-8 hours. BLANCAZ/06/22/2018 jorge/06/22/2018
== END 2018-06-22 14:00 | disposition home or self-care (01) ==
LOC: JASU-SURG 07:42
PROVIDERS: ATTEND Surgery
PROC: 0HBU0ZZ Excision of Left Breast, Open Approach (ICD-10-PCS; principal; 2018-06-22 09:00)
DX: D48.62 Neoplasm of uncertain behavior of left breast (principal)
CPT/HCPCS: 88307-TC; 94760

== ENCOUNTER 2022-10-10 07:54 | Day surgery (SDC) | payer OTHER ==
[2022-10-04 10:27] VITALS: BMI 42.7
[2022-10-10] MEDS ORDERED: BUPIVACAINE HCL/PF 2.5 MG/ML - 30 ML VIAL IJ ONE (09:01)
[2022-10-10] MEDS ORDERED: ROCURONIUM BROMIDE 50 MG/5 ML SYRINGE ONE ×2 (09:26→10:42)
[2022-10-10] MEDS ORDERED: MIDAZOLAM HCL 2 MG/2 ML SINGLE DOSE VIAL ONE (09:27)
[2022-10-10] MEDS ORDERED: PROPOFOL 40 ML ONE (09:27)
[2022-10-10] MEDS ORDERED: SUCCINYLCHOLINE CHLORIDE 200 MG/10 ML SYRINGE ONE (09:28)
[2022-10-10] MEDS ORDERED: ONDANSETRON 4 MG/2 ML VIAL ONE (10:16)
[2022-10-10] MEDS ORDERED: ceFAZolin SODIUM 1 GM VIAL ONE (10:16)
[2022-10-10] MEDS ORDERED: KETOROLAC TROMETHAMINE 30 MG/1 ML VIAL ONE (10:16)
[2022-10-10] MEDS ORDERED: DEXAMETHASONE SOD PHOSPHATE 4 MG/1 ML VIAL ONE (10:16)
[2022-10-10] MEDS ORDERED: GLYCOPYRROLATE 0.2 MG/1 ML VIAL ONE (12:21)
[2022-10-10] MEDS ORDERED: NEOSTIGMINE METHYLSULFATE 0.5 MG/1 ML - 10 ML MDV ONE (12:21)
[2022-10-10] MEDS ORDERED: HYDROmorphone HCL/PF 1 MG/ML VIAL ONE (12:25)
[2022-10-10] MEDS ORDERED: ONDANSETRON 4 MG/2 ML VIAL IVPUSH PRN ×2 (12:30→12:43)
[2022-10-10] MEDS ORDERED: PROMETHAZINE HCL 50 MG/1 ML AMP IM PRN (12:30)
[2022-10-10] MEDS ORDERED: oxyCODONE HCL 5 MG TABLET PO PRN ×3 (12:30→12:43)
[2022-10-10] MEDS ORDERED: SODIUM CHLORIDE 1,000 ML IV SCH (12:30)
[2022-10-10] MEDS ORDERED: PROMETHAZINE HCL 25 MG/1 ML VIAL IVPUSH PRN (12:43)
[2022-10-10] MEDS ORDERED: FAMOTIDINE 20 MG/50 ML IVPB 20 MG/50 ML MG IVPB ONE (12:57)
[2022-10-10] MEDS ORDERED: FAMOTIDINE 20 MG PREMIXED IVPB IVPB ONE (13:04)
[2022-10-10 13:09] LABS: HEMATOCRIT 39.5 % (32.4-45.2); HEMOGLOBIN 13.6 G/dL (10.7-15.3); MCH 28.8 pg (25.7-33.7); MCHC 34.4 g/dl (32.0-36.0); MEAN CELL VOLUME 83.7 fl (80-96); MEAN PLT VOLUME 8.4 fl (7.5-11.1); PLATELET COUNT 261.1 10^3/uL (134-434); RBC 4.72 10^6/uL (3.60-5.2); RDW 14.8 % (11.6-15.6); WHITE BLOOD COUNT 9.5 10^3/uL (4.0-10.8)
[2022-10-10 13:14] LABS: CALCIUM 8.7 mg/dl (8.5-10)
[2022-10-10 15:25] VITALS: TEMP 97.8
[2022-10-10 18:10] VITALS: RESP 17
[2022-10-10 18:13] VITALS: BP 129/75; PULSE 86
[2022-10-10] MEDS ORDERED: FAMOTIDINE 20 MG/50 ML IVPB 20 MG/50 ML MG IVPB SCH (22:00)
== END 2022-10-10 17:30 | disposition home or self-care (01) ==
LOC: FASU 07:54
PROVIDERS: ATTEND Surgery
PROC: 0BQT4ZZ Repair Diaphragm, Percutaneous Endoscopic Approach (ICD-10-PCS; 2022-10-10)
PROC: 0DV64CZ Restriction of Stomach with Extraluminal Device, Percutaneous Endoscopic Approach (ICD-10-PCS; principal; 2022-10-10 10:26)
DX: E66.01 Morbid (severe) obesity due to excess calories (principal); K44.9 Diaphragmatic hernia without obstruction or gangrene; Z68.41 Body mass index [BMI] 40.0-44.9, adult
CPT/HCPCS: 36415; 74240-TC-FY; 80048; 85027; 94760

== ENCOUNTER 2022-10-13 16:55 | Emergency (ER) | payer OTHER ==
[2022-10-13 17:11] VITALS: TEMP 98.7; BMI 42.5
[2022-10-13 18:08] LABS: HEMATOCRIT 39.9 % (32.4-45.2); HEMOGLOBIN 13.3 G/dL (10.7-15.3); MCH 27.4 pg (25.7-33.7); MCHC 33.4 g/dl (32.0-36.0); MEAN CELL VOLUME 81.9 fl (80-96); PLATELET COUNT 308.1 10^3/uL (134-434); RBC 4.87 10^6/uL (3.60-5.2); RDW 14.9 % (11.6-15.6); WHITE BLOOD COUNT 7.5 10^3/uL (4.0-10.8)
[2022-10-13 18:21] LABS: ALBUMIN 3.5 g/dl (3.4-5.0); BILIRUBIN,TOTAL 0.7 mg/dl (0.2-1); CALCIUM 9.5 mg/dl (8.5-10); CREATININE 0.8 mg/dl (0.55-1.3); TOT PROT 6.9 g/dl (6.4-8.2)
[2022-10-13] MEDS ORDERED: CEFTRIAXONE 1 GM in DEXTROSE 5%-WATER - 50 ML IVPB ONE (18:44)
[2022-10-13] MEDS ORDERED: AZITHROMYCIN IVPB 500 MG in DEXTROSE 5%-WATER - 250 ML IVPB ONE (18:45)
[2022-10-13] MEDS ORDERED: AZITHROMYCIN 500 MG VIAL IVPB ONE (18:52)
[2022-10-13] MEDS ORDERED: cefTRIAXone SODIUM 1 GM VIAL ONE (18:53)
[2022-10-13 19:04] LABS: N-TERMINAL BNP 48.1 pg/ml (5-125)
[2022-10-13 19:34] VITALS: BP 132/86; PULSE 87; RESP 16
[2022-10-13 19:49] LABS: PLATELET ESTIMATE ADEQUATE
== END 2022-10-13 21:08 | disposition home or self-care (01) ==
LOC: FER 16:55
DX: R06.02 Shortness of breath (principal); J98.11 Atelectasis
CPT/HCPCS: 0241U-QW; 36415; 71046-TC-FY; 71275-TC; 80053; 83880; 84484; 84702; 85027; 85379; 93005; 99285-25; Q9967